=== PATIENT | male | born 1990 | race African-American/Black ===

== ENCOUNTER 2020-12-11 13:59 | Emergency (ER) | payer SELFPAY ==
[~2020-12-11] VITALS: Ht 188 cm; Wt 145.0 kg
[2020-12-11] MEDS ORDERED: HYDR28.485 RC (15:55)
[2020-12-11 16:09] VITALS: BP 143/93
== END 2020-12-11 16:10 | disposition home or self-care (01) ==
LOC: ER 13:59
DX: L29.0 Pruritus ani (principal)
CPT/HCPCS: 99282